=== PATIENT | female | born 1950 | race Caucasian/White ===

== ENCOUNTER 2016-10-15 05:45 | Inpatient (IN) | payer OTHER ==
[2016-10-15] MEDS ORDERED: BUPIVACAINE/EPI 0.25% 30 ML SDV ONE (06:38)
[2016-10-15] MEDS ORDERED: THROMBIN (RECOMBINANT) 5,000 UNIT VIAL TP ONE (06:38)
[2016-10-15] MEDS ORDERED: BACITRACIN 50,000 UNITS/10 ML SYR IRR ONE (06:39)
[2016-10-15] MEDS ORDERED: CHLORHEXIDINE GLUC HIBICLENS 118 ML BTL TP ONE (07:00)
[2016-10-15] MEDS ORDERED: ceFAZolin 2 GM/DEXTROSE 100 ML IV ONE (07:00)
[2016-10-15] MEDS ORDERED: LR 1,000 ML IV ONE (07:08)
[2016-10-15] MEDS ORDERED: fentaNYL 250 MCG/5 ML INJ ONE (07:19)
[2016-10-15] MEDS ORDERED: PROPOFOL/EMULSION 500 MG/50 ML BOTTLE IV ONE (07:21)
[2016-10-15] MEDS ORDERED: MIDAZOLAM 2 MG/2 ML VIAL ONE (07:25)
[2016-10-15] MEDS ORDERED: ACETAMINOPHEN 325 MG TAB PO PRN (11:34)
[2016-10-15] MEDS ORDERED: HYDROCODONE/APAP 10/325 TAB PO PRN (11:34)
[2016-10-15] MEDS ORDERED: DIAZEPAM 10 MG/2 ML SYR IVP PRN (11:34)
[2016-10-15] MEDS ORDERED: ONDANSETRON 4 MG/2 ML VIAL IVP PRN (11:34)
[2016-10-15] MEDS ORDERED: MAGNESIUM HYDROXIDE 30 ML UDCUP PO PRN (11:34)
[2016-10-15] MEDS ORDERED: BISACODYL 10 MG SUPP PR PRN (11:34)
[2016-10-15] MEDS ORDERED: DIAZEPAM 10 MG/2 ML SYR ONE (11:38)
[2016-10-15] MEDS ORDERED: fentaNYL 100 MCG/2 ML INJ ONE ×2 (11:38→12:06)
[2016-10-15] MEDS ORDERED: NS W/ 20 KCl/L 1,000 ML IV SCH (11:45)
--- NOTE | 2016-10-15 11:48 | POSTOPPROG ---
Post Op Note Date of Operation: 10/15/16 Surgeon: Angus Felder Sap Bpc Developer: Samanta Hauser PA-C Anesthesia: GET(General Endotracheal) Pre-op Diagnosis: Lumbar spondylolisthesis Post-op Diagnosis: same Procedure: L4/5 TLIF Inf/Abcess present in the surg proc area at time of surgery?: No EBL: 100mL Drains: Calixto Solitario (MICHAEL X 1) SOAP Progress Note Assessment/Plan: Assessment: Plan: S: Patient waking up in PACU well. Has expected incisional pain. O: NAD, VSS PERRL No droop eyes have some erythema from tape on eyelids and cheek from anesthesia tape BUE/BLE 5/5= Sensation intact bilaterally BLE Incision c/d/i-dressed MICHAEL X 1- to full suction A/P: patient is a 66 yo female sp L4/5 TLIF -Admit to med surg -Advance diet as tolerated -PT/OT -Postop x-rays pending -MICHAEL X1- full suction -Wear LSO brace when out of bed -DVT: TEDs, SCDs, Lovenox ok 24 hours postop -Call neurosurgery with any changes in exam 10/15/16 11:45 Objective: Vital Signs Temp Pulse Resp BP Pulse Ox 19 127/76 H 100 10/15/16 11:30 10/15/16 11:25 10/15/16 11:30 10/14/16 10/15/16 10/16/16 05:59 05:59 05:59 Output Total 100 Balance -100
[2016-10-15] MEDS ORDERED: HYDROmorphONE/DILAUDID 1 MG/ML SYR ONE (11:58)
--- NOTE | 2016-10-15 12:16 | GOP ---
DATE OF OPERATION: 10/15/2016 SURGEON: Jamee Felder MD NEUROSURGEON: Jamee Felder MD. EXCHANGE FLOOR MANAGER: EFFIE Floyd. PREOPERATIVE DIAGNOSIS: Lumbar spondylolisthesis at L4-5. Lumbar degenerative disk disease. Lumba r spondylosis. Facet arthropathy L4-5. Axial low back pain. Degenerative facet arthropathy at L5- S1. POSTOPERATIVE DIAGNOSIS: Lumbar spondylolisthesis at L4-5. Lumbar degenerative disk disease. Lumb ar spondylosis. Facet arthropathy L4-5. Axial low back pain. Degenerative facet arthropathy at L5 -S1. PROCEDURE PERFORMED: An L4-5 posterior lateral and intervertebral arthrodesis with decompression ([id number]), placement of nonsegmental instrumentation across a single interspace L4-5 ([id number]), same incis ion bone graft harvest, microscope, spinal stereotaxy, placement of biomechanical intervertebral dev ice without anchors at L4-5 microscope. FINDINGS: ESTIMATED BLOOD LOSS: 100 cc. 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 There is also severe facet arthropathy at L 5-S1 and even a left-sided L5-S1 cyst in the neural foramen to the left L5 nerve root. I did not th ink this was symptomatic. She did not have radicular symptoms down the legs just terrible low-back pain and thoughts were very high that L4-5 was the only symptomatic level but we did discuss the pos sibility that L5-S1 was contributing. I thought treatment at L4-5 was the most conservative approac h for this problem. The risk of screw and hardware malposition, malfunction, pseudoarthrosis, adjac ent segment disease, nerve injury, spinal fluid leak, all was discussed. She knew that surgery may fail to alleviate her symptoms. She wanted to proceed despite them. DESCRIPTION OF PROCEDURE: Patient was taken to the operating room, placed in the supine position. General anesthesia was begun. She was flipped prone on the Calixto table. Care was taken to pad al l points of contact. Her back was sterilely prepped and draped in the usual fashion. The O-arm was introduced sterilely onto the field. We made a 2 inch incision above the L4-5 interspace. The sub cutaneous tissue was dissected using Bovie cautery down to the fascia and subperiosteal dissection w as made down the L4-5 lamina. A localizing x-ray was taken. We removed the bilateral very hypertro phic L4-5 facet joints and denuded and decorticated the transverse processes of L4-5 bilaterally. W e preserved the L3-4 joint rostrally. The L5-S1 joints were also hypotrophic and they protruded ros trally up toward the L5 transverse process. We left the spinal arch intact. We did not enter the f acet joints at L5-S1. We tested Stealth reference frame to the L4 spinous process and performed an O-arm spin, and using frameless Stealth stereotaxy, placed pedicle screws bilaterally at L4 and L5. The right L4 screw within the lateral border of the pedicle but then entered the lateral vertebral body. It was lateral in position. We had confirmed this with an O-arm spin, and it stimulated at 1 6 milliamps. All the other screws stimulated at 20 milliamperes. None of them encroached upon the rostral disk space at L4-5. This is confirmed with 3D imaging as well. We placed 35 mm rods down o dave the screws, distracted between L4 and L5, tightened the cap screws according to company specific ation. Removed all the soft tissue and bone at L4-5, harvested the inferior L4 spinous process for autologous grafting purposes. We performed a bilateral laminectomy at L4, L5, and there was really pretty significant bilateral recess stenosis. We performed a complete left L4-5 facetectomy, swept the nerve medially, coagulated the epidural veins. Incised the L4-5 disk. Removed the disk the car tilaginous end plates. We then roughened the subchondral bone to create arthrodesis at L4-5 and the n chose an 8 x 28 mm implant. We placed bone autograft and BMP into the disk space followed by the expandable implant which was expanded under fluoroscopic guidance. We used an 8 x 28 mm Elevate cag e. We then decorticated all the remaining bone posterior laterally bilaterally. We placed a small amount of BMP posterolaterally bilaterally and placed bone autograft down over the top of the facet joints on each side. We only used 75% of the BMP that was open. We placed a subfascial drain. The n closed the incision in multiple layers using Vicryl sutures. A running PDS was placed in the skin itself. There were no complications. INSTRUMENTATION USED: [employer] Solera pedicle screw instrumentation with the 4.75 omar system and a n 8 x 28 mm Elevate cage and we used 1.5 mg of bone morphogenic protein. /[id number]/MODL
[2016-10-15] MEDS: METHOCARBAMOL 750 MG TAB PO PRN ×2 (14:03→22:02)
[2016-10-15] MEDS ORDERED: HYDROmorphONE/DILAUDID 1 MG/ML SYR IVP PRN (15:31)
[2016-10-15] MEDS: oxyCODONE IR 5 MG TAB PO PRN ×3 (15:48→22:02)
[2016-10-15] MEDS: ONDANSETRON DISINTEGRATING 4 MG TAB PO PRN (19:21)
[2016-10-15] MEDS: ERYTHROMYCIN 0.5% 1 GM OPHT.OINT EACHEYE SCH (20:39)
[2016-10-15] MEDS: SENNOSIDES/DOCUSATE SODIUM TAB PO SCH (20:41)
[2016-10-15] MEDS ORDERED: clonazePAM 0.5 MG TAB PO SCH ×2 (21:00→23:00)
[2016-10-15] MEDS ORDERED: ATORVASTATIN CALCIUM 10 MG TAB PO SCH (21:00)
[2016-10-15] MEDS ORDERED: LISINOPRIL 10 MG TAB PO SCH ×2 (21:00→23:00)
[2016-10-15] MEDS ORDERED: DOXEPIN HCL 50 MG CAP PO SCH ×2 (21:00→23:00)
[2016-10-16] MEDS: oxyCODONE IR 5 MG TAB PO PRN ×6 (03:28→22:04)
[2016-10-16] MEDS ORDERED: LEVOTHYROXINE 50 MCG TAB PO SCH (06:00)
[2016-10-16] MEDS: METHOCARBAMOL 750 MG TAB PO PRN ×2 (06:25→22:24)
[2016-10-16] MEDS: DIAZEPAM 5 MG TAB PO PRN ×3 (08:05→17:53)
[2016-10-16] MEDS: SENNOSIDES/DOCUSATE SODIUM TAB PO SCH ×2 (08:05→20:39)
--- NOTE | 2016-10-16 08:09 | NEUSURGPN ---
Date of Surgery: 10/15/16 Post Op Day: 1 Assessment/Plan: 66 yo female s/p TLIF at L4/5 - neuro stable - pain control - MICHAEL drain x 1 with 180 cc output for 24 hours - postop x-rays pending - wear brace when out of bed - PT/OT - please call neurosurgery with any changes in neuro status/exam Subjective: [place] great yesterday afternoon, however, this morning is experiencing more back pain. No lower extremity pain, numbness, tingling. Objective: Awake. alert. PERRL. EOMI Muscle strength full at 5/5 Sensation intact Incision with dressing c/d/i - Physician Discussed Patient with .: [facility] Physical Exam - Vitals, I&O, Labs I and O 10/15/16 10/16/16 10/17/16 05:59 05:59 05:59 Intake Total 3900 Output Total 2180 Balance 1720 Weight 54.431 kg Intake: Oral (ml) 1900 IV Intake (ml) 1650 IV Infused (ml) 350 NS W/ 20 KCl/L 1,000 ml @ 250 75 mls/hr IV CONT GREG Rx #:[id number] ceFAZolin 1 GM/DEXTROSE 100 50 ml @ 200 mls/hr IV Q8HRS GREG Rx#:[id number] Output: Urine (ml) 1900 Bedside Commode 900 Toilet 1000 Estimated Blood Loss (ml) 100 Wound Drainage (ml) 180 #1 Left Posterior Back 180 Other: Number of Voids Bedside Commode 1 Toilet 2 1 Vital Signs Temp Pulse Resp BP Pulse Ox 37.1 C 90 18 113/78 97 10/16/16 07:31 10/16/16 07:31 10/16/16 07:31 10/16/16 07:31 10/16/16 07:31 ICD10 Worksheet Patient Problems: Problems Problem Status Onset Spondylolisthesis at L4-L5 level Acute - ICD10 Problem Qualifiers (1) Spondylolisthesis at L4-L5 level
[2016-10-16] MEDS ORDERED: LISINOPRIL 10 MG TAB PO SCH (09:00)
[2016-10-16] MEDS ORDERED: DOXEPIN HCL 50 MG CAP PO SCH (09:00)
[2016-10-16] MEDS: LEVOTHYROXINE 50 MCG TAB PO SCH (09:37)
[2016-10-16] MEDS: MAGNESIUM OXIDE 400 MG TAB PO SCH (09:39)
[2016-10-16] MEDS: POLYETHYLENE GLYCOL 3350 17 GM PKT PO PRN (12:54)
[2016-10-16] MEDS: ENOXAPARIN 40 MG/0.4 ML SYR SC SCH (13:00)
[2016-10-16] MEDS: ONDANSETRON DISINTEGRATING 4 MG TAB PO PRN ×2 (16:43→22:03)
[2016-10-16] MEDS: LISINOPRIL 10 MG TAB PO SCH (20:38)
[2016-10-16] MEDS: diphenhydrAMINE 25 MG CAP PO PRN (22:10)
[2016-10-16] MEDS: DOXEPIN HCL 50 MG CAP PO SCH (22:13)
[2016-10-16] MEDS: clonazePAM 0.5 MG TAB PO SCH (22:13)
[2016-10-16] MEDS: ERYTHROMYCIN 0.5% 1 GM OPHT.OINT EACHEYE SCH ×2 (22:14→22:22)
[2016-10-17] MEDS: oxyCODONE IR 5 MG TAB PO PRN ×3 (01:42→17:00)
[2016-10-17] MEDS: DIAZEPAM 5 MG TAB PO PRN ×2 (01:43→08:26)
[2016-10-17] MEDS: ONDANSETRON DISINTEGRATING 4 MG TAB PO PRN (05:59)
[2016-10-17] MEDS: METHOCARBAMOL 750 MG TAB PO PRN (06:01)
--- NOTE | 2016-10-17 08:22 | NEUSURGPN ---
Date of Surgery: 10/15/16 Post Op Day: 2 Assessment/Plan: 66 yo female s/p TLIF at L4/5 - neuro stable - pain control, will try MSContin and see if adequate control received with this valium and oxy - postop x-rays pending - wear brace when out of bed - PT/OT as able - please call neurosurgery with any changes in neuro status/exam Subjective: pain improving but still not adequately controlled Objective: Awake. alert. PERRL. EOMI Muscle strength full at 5/5 Sensation intact Incision with dressing c/d/i - Physician Discussed Patient with : [facility] Physical Exam - Vitals, I&O, Labs I and O 10/16/16 10/17/16 10/18/16 05:59 05:59 05:59 Intake Total 3900 1000 Output Total 2180 Balance 1720 1000 Weight 54.431 kg Intake: Oral (ml) 1900 1000 IV Intake (ml) 1650 IV Infused (ml) 350 NS W/ 20 KCl/L 1,000 ml @ 250 75 mls/hr IV CONT GREG Rx #:[id number] ceFAZolin 1 GM/DEXTROSE 100 50 ml @ 200 mls/hr IV Q8HRS GREG Rx#:[id number] Output: Urine (ml) 1900 Bedside Commode 900 Toilet 1000 Estimated Blood Loss (ml) 100 Wound Drainage (ml) 180 #1 Left Posterior Back 180 Other: Intake Quantity Yes Sufficient Number of Voids Bedside Commode 1 Toilet 2 1 Vital Signs Temp Pulse Resp BP Pulse Ox 36.8 C 82 16 105/65 97 10/16/16 23:47 10/16/16 23:47 10/16/16 23:47 10/16/16 23:47 10/16/16 23:47 ICD10 Worksheet Patient Problems: Problems Problem Status Onset Spondylolisthesis at L4-L5 level Acute
[2016-10-17] MEDS: SENNOSIDES/DOCUSATE SODIUM TAB PO SCH ×2 (08:26→20:03)
[2016-10-17] MEDS: POLYETHYLENE GLYCOL 3350 17 GM PKT PO PRN (08:26)
[2016-10-17] MEDS: ENOXAPARIN 40 MG/0.4 ML SYR SC SCH (08:28)
[2016-10-17] MEDS: LEVOTHYROXINE 50 MCG TAB PO SCH (08:45)
[2016-10-17] MEDS: morphINE SR 15 MG TAB PO SCH ×2 (09:25→20:05)
[2016-10-17] MEDS: MAGNESIUM OXIDE 400 MG TAB PO SCH (09:28)
[2016-10-17] MEDS ORDERED: ALPRAZolam 0.25 MG TAB PO ONE (12:00)
[2016-10-17] MEDS: LACTULOSE 20 GM/30 ML UDCUP PO PRN (14:10)
[2016-10-17 19:24] VITALS: RESP 16
[2016-10-17] MEDS: DOXEPIN HCL 50 MG CAP PO SCH (20:02)
[2016-10-17] MEDS: LISINOPRIL 10 MG TAB PO SCH (20:03)
[2016-10-17] MEDS: clonazePAM 0.5 MG TAB PO SCH (20:04)
[2016-10-17] MEDS: diphenhydrAMINE 25 MG CAP PO PRN (20:05)
[2016-10-18] MEDS: ERYTHROMYCIN 0.5% 1 GM OPHT.OINT EACHEYE SCH (00:34)
[2016-10-18 07:45] VITALS: BP 99/63; PULSE 94; TEMP 99.1; O2SAT 94
--- NOTE | 2016-10-18 08:49 | NEUSURGPN ---
Assessment/Plan: 66 yo female s/p TLIF at L4/5 - neuro stable - pain control, improved on MS contin - postop x-rays show stable hardware - wear brace when out of bed - PT/OT cleared for dc. - please call neurosurgery with any changes in neuro status/exam Subjective: pt feels much better today, bowels active, pain controlled Objective: nad vss, EOMI, PEARLA cnii-xii grossly intact +LT BLE 5/[address]: No - Physician Discussed Patient with : [facility] Physical Exam - Vitals, I&O, Labs I and O 10/17/16 10/18/16 10/19/16 05:59 05:59 05:59 Intake Total 1000 1000 Balance 1000 1000 Intake: Oral (ml) 1000 1000 Other: Intake Quantity Yes Yes Sufficient Number of Voids Toilet 1 1 Vital Signs Temp Pulse Resp BP Pulse Ox 37.3 C 94 16 99/63 L 94 10/18/16 07:43 10/18/16 07:43 10/18/16 07:43 10/18/16 07:43 10/18/16 07:43 ICD10 Worksheet Patient Problems: Problems Problem Status Onset Spondylolisthesis at L4-L5 level Acute
[2016-10-18] MEDS: LEVOTHYROXINE 50 MCG TAB PO SCH (08:51)
[2016-10-18] MEDS: morphINE SR 15 MG TAB PO SCH (08:56)
[2016-10-18] MEDS: ENOXAPARIN 40 MG/0.4 ML SYR SC SCH (08:57)
[2016-10-18] MEDS: SENNOSIDES/DOCUSATE SODIUM TAB PO SCH (08:57)
[2016-10-18] MEDS: LACTULOSE 20 GM/30 ML UDCUP PO PRN (08:58)
[2016-10-18] MEDS: ONDANSETRON DISINTEGRATING 4 MG TAB PO PRN (11:37)
[2016-10-18] MEDS: MAGNESIUM OXIDE 400 MG TAB PO SCH (11:46)
--- NOTE | 2016-10-18 20:17 | GDS ---
ADMISSION DIAGNOSIS: L4-5 spondylolisthesis, status post arthrodesis with TLIFs and PSF. PROCEDURES: Included L4-5 transforaminal lumbar interbody fusion and posterior fusion. HOSPITAL COURSE: Patient is 66-year-old female, a history of lumbar spondylolisthesis admitted post operatively for recovery for L4-5 TLIF. She initially had some issues with pain; however, the pain was controlled. Postoperative x-rays showed hardware in good position. She was seen by PT, OT and evaluated and deemed fit for discharge. Her MICHAEL drain was removed on 10/16. She was given a brace f or when out of bed and discharged safely home on 10/18. DISCHARGE MEDICATIONS: For pain included a 5-day supply of MS Contin, as well as oxycodone and Roba obie, and she is to continue her meds. DISCHARGE INSTRUCTIONS: Follow up in 2 weeks for a wound check with Dr. Felder in clinic. /[id number]/MODL
== END 2016-10-18 12:11 | disposition home or self-care (01) | DRG 460 ==
LOC: F3N 05:45
PROVIDERS: ADMIT Neurological Surgery; ATTEND Neurological Surgery
PROC: 0SG00AJ Fusion of Lumbar Vertebral Joint with Interbody Fusion Device, Posterior Approach, Anterior Column, Open Approach (ICD-10-PCS; principal; 2016-10-15 07:30)
PROC: 01NB0ZZ Release Lumbar Nerve, Open Approach (ICD-10-PCS; principal; 2016-10-15 07:30)
DX: M43.16 Spondylolisthesis, lumbar region (principal); M51.36 Other intervertebral disc degeneration, lumbar region; M47.896 Other spondylosis, lumbar region; E03.9 Hypothyroidism, unspecified; I10 Essential (primary) hypertension; F41.9 Anxiety disorder, unspecified; Z85.44 Personal history of malignant neoplasm of other female genital organs
CPT/HCPCS: 97116-GP; 97161-GP; 97165-GO; 97535-GO; C1713; G8978-GP-CJ; G8979-GP-CI; J0690; J1170; J1650; J2250; J2704; J3010

== ENCOUNTER → 2017-04-16 | Outpatient (CLI) | payer OTHER | LOC: FIMAGING 11:25 | PROVIDERS: ATTEND Family Medicine | DX: Z12.31 Encounter for screening mammogram for malignant neoplasm of breast (principal) | CPT/HCPCS: G0202 ==

== ENCOUNTER → 2017-05-21 | Outpatient (CLI) | payer OTHER | LOC: FIMAGING 11:18 | PROVIDERS: ATTEND Physical Medicine & Rehabilitation | DX: M54.5 Low back pain (principal); Z98.1 Arthrodesis status | CPT/HCPCS: 78300; A9503 ==

== ENCOUNTER → 2017-07-09 | Outpatient (CLI) | payer OTHER | LOC: FIMAGING 13:25 | PROVIDERS: ATTEND Family Medicine | DX: Z13.820 Encounter for screening for osteoporosis (principal); M81.0 Age-related osteoporosis without current pathological fracture; E07.9 Disorder of thyroid, unspecified; Z78.0 Asymptomatic menopausal state; Z79.899 Other long term (current) drug therapy; Z85.42 Personal history of malignant neoplasm of other parts of uterus; Z82.62 Family history of osteoporosis; Z91.81 History of falling ==

== ENCOUNTER → 2018-04-26 | Outpatient (CLI) | payer OTHER | LOC: FIMAGING 12:04 | PROVIDERS: ATTEND Family Medicine | DX: Z12.31 Encounter for screening mammogram for malignant neoplasm of breast (principal) ==